=== PATIENT | female | born 1970 | race Caucasian/White ===

== ENCOUNTER 2022-03-29 00:05 | Emergency (ER) | payer BC, SELFPAY ==
[2022-03-29 00:15] VITALS: BP 157/89; PULSE 78; RESP 18; TEMP 36.9
--- NOTE | 2022-03-29 00:15 | DI.CT_ITS ---
Exam(s) CT RENAL COLIC WO EXAM: CT RENAL COLIC WO CLINICAL HISTORY: left flank pain, r/o divertic/stone. TECHNIQUE: Imaging Protocol: Axial computed tomography images with coronal and sagittal reformatted images were created and reviewed CONTRAST MATERIAL: Intravenous: none Oral: None COMPARISON: No exams were available for comparison FINDINGS: VISUALIZED LUNG BASES: There is mild infiltrate in the lung bases, slightly more so on the right side . There are no pleural effusions.. ABDOMEN: There is no ascites. LIVER: Liver is hypodense implying steatosis. There is some fatty parenchymal sparing around the gal lbladder fossa. GALLBLADDER/BILIARY: No obvious gallbladder pathology. CBD is not dilated. PANCREAS: No evidence of pancreatic mass nor dilatation of the pancreatic duct. SPLEEN: Spleen is not enlarged. No obvious intrasplenic lesions. ADRENALS: There are no significant adrenal masses. KIDNEYS:Left-sided nephrolithiasis noted. There is also a 2 millimeter calculus at the left ureterop elvic junction. Larger presently nonobstructive calculi noted in the ipsilateral left kidney. Left ureter below the UPJ is not dilated. There are no calculi in the lower left ureter nor within the ur inary bladder. No calculi seen in the right kidney and right ureter. There is a small exophytic nod ule off the lateral cortex of the right kidney which measures 8 x 7 millimeters, denser than a typica l cyst, possibly hemorrhagic cyst or otherwise.. ABDOMINAL AORTA: Abdominal aorta is not enlarged. LYMPH NODES: There is no retroperitoneal nor paraaortic adenopathy. ABDOMINAL WALL: No evidence of significant anterior abdominal wall nor inguinal hernia.. Fat only co ntaining umbilical hernia. Bowel loops therein. GI: There is no evidence of bowel obstruction, free air, nor abscess. PELVIS: LYMPH NODES: There is no intrapelvic nor inguinal adenopathy. GI: No evidence of appendicitis.Sigmoid diverticulosis. No obvious acute diverticulitis. URINARY BLADDER: No calculi nor obvious masses evident REPRODUCTIVE: Uterus size normal. No adnexal masses. No free fluid. OSSEOUS: No significant osseous lesions. IMPRESSION: 1. There is an obstructing 2-3 millimeter calculus at the left ureteropelvic junction. Mild dilatati on above this level. There also additional presently nonobstructive calculi in the left kidney none. 2. Partially exophytic 8 x 7 millimeter nodule off the lateral cortex of the opposite-right kidney, p ossibly hemorrhagic cyst but recommend follow-up ultrasound to ensure that this is cystic. 3. Hepatic steatosis. Mild infiltrate in both lung bases, right more so than left. No pleural effusions. RADIATION DOSE DELIVERED: 986.47mGy.cm Total DLP DATA REPOSITORY: All CT scans at this facility are submitted to the National Radiology Data Registry (NRDR) Dose Index Registry (DIR) with the [employer] (A[employer]). RADIATION OPTIMIZATION: All CT scans at this facility use at least one of these dose optimization te chniques: automated exposure control; mA and/or kV adjustment per patient size (includes targeted exa ms where dose is matched to clinical indication); or iterative reconstruction.
[2022-03-29] MEDS: MORPHine 4 MG/ML SYR IVP (00:38)
[2022-03-29] MEDS: Normal Saline 1,000 ML 1000 ML IV (00:38)
[2022-03-29 00:39] LABS: Abs Immature Grans 0.03 10^3/uL (0.0-0.06); Absolute Basophil Count 0.06 10^3/uL (0.0-0.2); Absolute Eosinophil Count 0.33 10^3/uL (0.0-0.7); Absolute Lymphocyte Count 2.71 10^3/uL (1.2-3.4); Absolute Monocyte Count 0.66 10^3/uL (0.1-0.8); Absolute Neutrophil Count 4.75 10^3/uL (1.2-6.7); Basophils % 0.7; Eosinophils % 3.9; HCT 41.6 % (36.0-46.0); HGB 14.9 g/dL (11.2-15.7); Immature Grans % 0.4; Lymphocytes % 31.7; MCH 31.4 pg (27.0-33.0); MCHC 35.8 % (32.0-36.0); MCV 88 fL (80-95); MPV 10.5 fL (8.0-11.0); Monocytes % 7.7; Neutrophils % 55.6; Platelet Count 240 10^3/uL (130-400); RBC 4.75 10^6/uL (3.93-5.22); RDW 11.6 % (11.7-14.6); RDW-SD 37.3 fL; WBC 8.54 10^3/uL (4.4-10.8)
[2022-03-29] MEDS: Ondansetron 4 MG/2 ML VIAL IVP (00:39)
[2022-03-29] MEDS: HYDROmorphone 2 MG/ML VIAL 1 MG IVP ×2 (00:48→02:53)
[2022-03-29 01:00] LABS: Bilirubin Negative (Negative); Blood Large (Negative); Clarity Sl Cloudy (Clear); Glucose Negative (Negative); Ketones Negative (Negative); Leukocyte Esterase Negative (Negative); Nitrite Negative (Negative); Specific Gravity 1.025 (1.005-1.025); pH 6.5 (5-8)
[2022-03-29 01:00] LABS: ALT 39 U/L (14-59); AST 22 U/L (15-37); Albumin 3.9 g/dL (3.4-5.0); Alkaline Phosphatase 66 U/L (46-116); Anion Gap 9.5 mmol/L (3-11); BUN 28 mg/dL (7-18); Bilirubin, Total 0.6 mg/dL (0.2-1.0); CO2 27.5 mmol/L (21.0-32.0); CREATININE 1.1 mg/dL (0.55-1.02); Calcium 9.5 mg/dL (8.5-10.1); Chloride 105 mmol/L (98-107); Estimated GFR 51.96 (mL/min/1.73m2); Glucose 116 mg/dL (74-106); Lipase 134 U/L (73-393); Potassium 3.6 mmol/L (3.5-5.1); Sodium 142 mmol/L (136-145); Total Protein 7.1 g/dL (6.4-8.2)
[2022-03-29 01:19] LABS: Epithelial Cells Moderate HPF (Negative); RBC >50 HPF (0-2)
[2022-03-29 01:20] LABS: C & S Indicated? No/Sq. Contamination
--- NOTE | 2022-03-29 01:24 | W.ED.GENAD ---
Discharge Plan Disposition Patient Disposition: HOME Condition: Good Discharge Details Clinical Impression: Kidney stone on left side ED Provider: Philippe Draper Home Meds and New Rx's Prescriptions: New hydrocodone-acetaminophen 10-325 mg tablet 1 tab PO Q6H PRNQty: 14 0RF tamsulosin [Flomax] 0.4 mg capsule 0.4 mg PO DAILY Qty: 7 0RF No Action esomeprazole magnesium [Nexium] 40 mg Capsule,Delayed Release(Dr/Ec) 40 mg PO DAILY metformin 500 mg Tablet 500 mg PO DAILY amlodipine 5 mg Tablet 5 mg PO DAILY losartan-hydrochlorothiazide 50-12.5 mg Tablet 1 tab PO DAILY Discharge Instructions Instructions: Kidney Stones (ED) Additional Instructions: At this time you do have a 2 mm kidney stone. It does not move much. Please take your pain medications, and the Flomax as directed. Please drink plenty fluids and stay well-hydrated. If you do not have improvement or relief of your pain in the next 2 to 3 days please return for reassessment. If you notice any worsening of your symptoms, or any new symptoms such as vomiting, diarrhea, fever, chills, shortness of breath, chest pain, numbness, weakness, or fainting , please return immediately to the emergency department for reevaluation. Please follow up with your primary care provider as soon as possible for reassessment and reevaluation. As always, it was a pleasure participating in your medical care today. Referrals: Herrera Salmeron MD [ [facility] STAFF PHYSICIAN] - Medical Decision Making 51-year-old female with a past medical history of reflux, diabetes, hypertension, previous ovarian cyst and previous ovarian mass, diverticulitis, previous left-sided kidney stone, who presents today for evaluation of left flank pain. Pain began earlier today, comes and goes in severity. It goes from the left flank and radiates somewhat downwards. She denies seeing any blood in her urine. She denies any vomiting or diarrhea. She denies any numbness or tingling. No other complaints at this time. No other modifying factors Physical exam demonstrates mild left CVA tenderness. No signs of an acute surgical abdomen on exam. Differential is highest for kidney stone. Diverticulitis is also of concern, will evaluate for these etiologies, monitor closely and reassess 2:[address] scan has returned, there is evidence of a 2 mm left ureteropelvic junction stone. Moderate left hydronephrosis. Urinalysis shows no evidence of infection, no white count or bandemia. Patient's pain is notably improved. She feels better and feels comfortable going home. Patient will be discharged with Flomax, and pain pills. I have instructed her that if her symptoms do not improve over the next day or 2, then it would be beneficial to get rechecked as the stone may not be passing secondary to a stricture. Patient feels good with the plan. I have extensively reviewed the treatment plan and discharge instructions with the patient. I have addressed all patient concerns at this time. The patient was made aware of what symptoms to monitor for that would warrant a return to the emergency department. Discussed the plan with the patient, they demonstrate verbal understanding and agreement with our assessment and plan at this time. The documentation in this chart was dictated using [employer] dictation software. Please excuse any dictation errors. FINDINGS: Lungs: Scattered ground-glass opacity noted in the lung bases. Liver: Liver is large, 20 cm in length. Liver attenuation is low. Negative for mass or abscess. Gallbladder and bile ducts: Normal. No calcified stones. No ductal dilation. Pancreas: Normal. No ductal dilation. Spleen: Normal. No splenomegaly. Adrenal glands: Normal. No mass. Kidneys and ureters: Moderate left hydronephrosis. A 2 mm stone is noted at the left ureteropelvic junction. No other stones are observed in the ureters. Negative for right hydronephrosis. Several nonobstructing stones are present in the left renal collecting system, up to 5 mm. Mild fat stranding noted around the left kidney. Stomach and bowel: Unremarkable stomach. Nondilated small bowel. Negative for inflammatory changes around the colon. Diverticula noted in the colon. Appendix: Normal appendix. Intraperitoneal space: Unremarkable. No free air. No significant fluid collection. Vasculature: Unremarkable. No abdominal aortic aneurysm. Lymph nodes: Unremarkable. No enlarged lymph nodes. Urinary bladder: Unremarkable as visualized. Reproductive: Unremarkable as visualized. Bones/joints: No compression fracture. Mild degenerative changes present in the spine and hips. Soft tissues: Unremarkable. IMPRESSION: 1. Left ureteropelvic junction stone, 2 mm. 2. Moderate left hydronephrosis. 3. Hepatic steatosis. 4. Mild edema or pneumonitis in the lung bases. Thank you for allowing us to participate in the care of your patient. Dictated and Authenticated by: Remi Salmeron MD 03/29/2022 1:57 AM Eastern Time ([place] & [place]) HPI General Date/Time Provider Initiated Documentation: 03/29/22 00:15. HPI Narrative: 51-year-old female with a past medical history of reflux, diabetes, hypertension, previous ovarian cyst and previous ovarian mass, diverticulitis, previous left-sided kidney stone, who presents today for evaluation of left flank pain. Pain began earlier today, comes and goes in severity. It goes from the left flank and radiates somewhat downwards. She denies seeing any blood in her urine. She denies any vomiting or diarrhea. She denies any numbness or tingling. No other complaints at this time. No other modifying factors Related Data Home Medications Medication Instructions Recorded Confirmed amlodipine 5 mg tablet 5 mg PO DAILY 03/29/22 03/29/22 esomeprazole magnesium 40 mg 40 mg PO DAILY 03/29/22 03/29/22 capsule,delayed release (Nexium) hydrocodone 10 mg-acetaminophen 1 tab PO Q6H PRN #14 tabs 03/29/22 325 mg tablet losartan 50 mg-hydrochlorothiazide 1 tab PO DAILY 03/29/22 03/29/22 12.5 mg tablet metformin 500 mg tablet 500 mg PO DAILY 03/29/22 03/29/22 tamsulosin 0.4 mg capsule (Flomax) 0.4 mg PO DAILY #7 caps 03/29/22 Previous Rx's Medication Instructions Recorded hydrocodone 10 mg-acetaminophen 1 tab PO Q6H PRN #14 tabs 03/29/22 325 mg tablet tamsulosin 0.4 mg capsule (Flomax) 0.4 mg PO DAILY #7 caps 03/29/22 Allergies Allergy/AdvReac Type Severity Reaction Status Date / Time bee pollen Allergy Severe Anaphylaxis Unverified 03/29/22 00:23 Penicillins Allergy Severe Other (See Unverified 03/29/22 00:23 Comment) General Stated Complaint: Abd Prob VERONA: 3 Review of Systems All systems reviewed & are unremarkable except as noted in HPI and below PFSH All Active Problems (Updated 03/29/22 @ 02:39 by Philippe Draper DO) Kidney stone on left side (Acute) Medical History Diverticulitis Kidney stones Metabolic syndrome Social History Smoking/Tobacco Use Status: Never Smoking risk assessment performed?: Yes Alcohol Intake: current Alcohol Intake frequency: holidays/special occasions only Drug use: Never Substance use type: does not use Do you feel safe at home: Yes Do you feel safe in your relationship?: Yes Exam Narrative Exam Narrative: 1.Const: Well-nourished, Well-developed, appearing stated age 2.Eyes: PERRL, no conjunctival injection, and symmetrical lids. 3.ENT: Atraumatic external nose and ears. Moist MM. Neck: Symmetric, trachea midline, No thyromegaly. 4.CVS: +S1/S2, No murmurs or gallops. Peripheral pulses 2+ and equal in all extremities. Brisk capillary refill in all extremities. 5.RESP: Unlabored respiratory effort. Clear to auscultation bilaterally. No wheezes rales or rhonchi 6.GI: Soft, Nontender/Nondistended, No hepatosplenomegaly. No guarding or rebound. Mild left CVA tenderness 7.MSK: Normocephalic/Atraumatic, Extremities w/o deformity or ttp No cyanosis or clubbing, Normal movement of all extremities 8.Skin: Warm, Dry. No rashes or lesions. 9.Neuro: director maternal child II-XII grossly intact. Sensation grossly intact, no focal neurologic deficits. 10.Psych: (AAO) x3. Appropriate mood and affect Course Vital Signs Vital signs: Vital Signs Temperature 36.9 C 03/29/22 00:15 Pulse 78 03/29/22 00:15 Respiratory Rate 18 03/29/22 00:15 Blood Pressure 157/89 H 03/29/22 00:15 Temperature 36.9 C 03/29/22 00:15 Temperature Source Oral 03/29/22 00:15 Pulse 78 03/29/22 00:15 Respiratory Rate 18 03/29/22 00:15 Respiratory Effort Non-Labored 03/29/22 01:12 Blood Pressure 157/89 H 03/29/22 00:15 Pain Level 10 03/29/22 00:48 Lab/Test Results Lab/Test Results: Laboratory Tests Range/Units 03/29/22 03/29/22 03/29/22 00:23 00:30 00:30 WBC (4.4-10.8) 10^3/uL 8.54 RBC (3.93-5.22) 10^6/uL 4.75 Hgb (11.2-15.7) g/dL 14.9 Hct (36.0-46.0) % 41.6 MCV (80-95) fL 88 MCH (27.0-33.0) pg 31.4 MCHC (32.0-36.0) % 35.8 RDW (11.7-14.6) % 11.6 L Plt Count (130-400) 10^3/uL 240 MPV (8.0-11.0) fL 10.5 Immature Gran % 0.4 Neutrophils % 55.6 Lymphocytes % 31.7 Monocytes % 7.7 Eosinophils % 3.9 Basophils % 0.7 Nucleated RBC % (0.0-0.3) % 0.0 Absolute Neutrophils (1.2-6.7) 10^3/uL 4.75 Absolute Lymphocytes (1.2-3.4) 10^3/uL 2.71 Absolute Monocytes (0.1-0.8) 10^3/uL 0.66 Absolute Eosinophils (0.0-0.7) 10^3/uL 0.33 Absolute Basophils (0.0-0.2) 10^3/uL 0.06 Sodium (136-145) mmol/L 142 Potassium (3.5-5.1) mmol/L 3.6 Chloride (98-107) mmol/L 105 Carbon Dioxide (21.0-32.0) mmol/L 27.5 Anion Gap (3-11) mmol/L 9.5 BUN (7-18) mg/dL 28 H Creatinine (0.55-1.02) mg/dL 1.1 H Estimated GFR/1.73 m2 (mL/min/1.73m2) 51.96 Glucose (74-106) mg/dL 116 H Calcium (8.5-10.1) mg/dL 9.5 Total Bilirubin (0.2-1.0) mg/dL 0.6 AST (15-37) U/L 22 ALT (14-59) U/L 39 Alkaline Phosphatase (46-116) U/L 66 Total Protein (6.4-8.2) g/dL 7.1 Albumin (3.4-5.0) g/dL 3.9 Lipase (73-393) U/L 134 Urine Color (Yellow) Yellow Urine Clarity (Clear) Sl Cloudy Urine pH (5-8) 6.5 Ur Specific [place] (1.005-1.025) 1.025 Urine Protein (Negative) mg/dL Negative Urine Ketones (Negative) mg/dL Negative Urine Blood (Negative) Large H Urine Nitrite (Negative) Negative Urine Bilirubin (Negative) Negative Urine Urobilinogen (Up TO 0.2) EU/dL 1.0 H Ur Leukocyte Esterase (Negative) Negative Urine RBC (0-2) HPF >50 H Urine WBC (0-5) HPF Ur Epithelial Cells (Negative) HPF Moderate Urine Crystals Not Applicable Urine Bacteria (Negative) HPF Urine Mucus Not Applicable Ur Culture Indicated? No/Sq. Contamination Urine Glucose (Negative) mg/dL Negative
[2022-03-29] MEDS: Tamsulosin 0.4 MG CAPCR PO (01:36)
[2022-03-29] MEDS: Ketorolac 15 MG/ML VIAL IVP (01:36)
--- NOTE | 2022-03-29 01:57 | DI.VRAD_ITS ---
PROCEDURE INFORMATION: Exam: CT Abdomen And Pelvis Without Contrast Exam date and time: 03/29/2022 1:14 AM Age: 51 years old Clinical indication: Abdominal pain; Flank; Left; Additional info: Left flank pain, R/O divertic/stone TECHNIQUE: Imaging protocol: Computed tomography of the abdomen and pelvis without contrast. Radiation optimization: All CT scans at this facility use at least one of these dose optimization techniques: automated exposure control; mA and/or kV adjustment per patient size (includes targeted exams where dose is matched to clinical indication); or iterative reconstruction. COMPARISON: No relevant prior studies available. FINDINGS: Lungs: Scattered ground-glass opacity noted in the lung bases. Liver: Liver is large, 20 cm in length. Liver attenuation is low. Negative for mass or abscess. Gallbladder and bile ducts: Normal. No calcified stones. No ductal dilation. Pancreas: Normal. No ductal dilation. Spleen: Normal. No splenomegaly. Adrenal glands: Normal. No mass. Kidneys and ureters: Moderate left hydronephrosis. A 2 mm stone is noted at the left ureteropelvic junction. No other stones are observed in the ureters. Negative for right hydronephrosis. Several nonobstructing stones are present in the left renal collecting system, up to 5 mm. Mild fat stranding noted around the left kidney. Stomach and bowel: Unremarkable stomach. Nondilated small bowel. Negative for inflammatory changes around the colon. Diverticula noted in the colon. Appendix: Normal appendix. Intraperitoneal space: Unremarkable. No free air. No significant fluid collection. Vasculature: Unremarkable. No abdominal aortic aneurysm. Lymph nodes: Unremarkable. No enlarged lymph nodes. Urinary bladder: Unremarkable as visualized. Reproductive: Unremarkable as visualized. Bones/joints: No compression fracture. Mild degenerative changes present in the spine and hips. Soft tissues: Unremarkable. IMPRESSION: 1. Left ureteropelvic junction stone, 2 mm. 2. Moderate left hydronephrosis. 3. Hepatic steatosis. 4. Mild edema or pneumonitis in the lung bases. Dictated and Authenticated by: Remi Salmeron MD. Ordering:ALEKSANDRA Paez MD
[2022-03-29 03:05] VITALS: BP 124/81; PULSE 57; RESP 16; O2SAT 98
== END 2022-03-29 03:19 | disposition home or self-care (01) ==
LOC: ER 03:24
PROVIDERS: Emergency Provider Student in an Organized Health Care Education/Training Program
DX: N13.2 Hydronephrosis with renal and ureteral calculous obstruction (principal); K57.92 Diverticulitis of intestine, part unspecified, without perforation or abscess without bleeding; I10 Essential (primary) hypertension; E11.9 Type 2 diabetes mellitus without complications; Z79.84 Long term (current) use of oral hypoglycemic drugs; Z79.899 Other long term (current) drug therapy
CPT/HCPCS: 80053; 81025; 83690; 96361; 96374; 96375; 96376; 99284; 74176; 81003; 81015; 85025; J1885; J2270; J2405